=== PATIENT | male | born 1975 | race Caucasian/White ===

== ENCOUNTER 2017-09-23 01:53 | Emergency (ER) | payer BC, OTHER ==
[2017-09-23] MEDS ORDERED: 0.9 % SODIUM CHLORIDE 1,000 ML BAG IV ONE (02:17)
--- NOTE | 2017-09-23 02:21 | Emergency Department Record ---
History of Present Illness - General Chief Complaint: Rapid heartbeat Stated Complaint: "I FEEL STRANGE - ANXIETY MAYBE" Time Seen by Provider: 09/23/17 02:04 Source: Patient Mode of Arrival: Ambulatory Limitations: No limitations - History of Present Illness Initial Comments: The patient is here due to feeling anxious and like his heart has been racing since he went to work [employer] at 10:30 pm. He denies any pain or discomfort but did have some trouble breathing with it which has resolved. The patient denies any recent illness but has been depressed due to a recent back injury. He has had anxiety like this in the past and has been to the ER for it. The patient has no cardiac risk factors and has not ran out of any of his medicines. MD Complaint: "Heart racing", Palpitations Onset/Timin -: Hour(s) Context: Occurred during rest Arrythmia History: Other Associated Symptoms: Anxiety - Related Data Home Medications Medication Instructions Recorded Confirmed Last Taken Diazepam [Valium] 5 mg PO Q8H 09/23/17 09/23/17 09/22/17 Gabapentin [Neurontin] 900 mg PO BID 09/23/17 09/23/17 09/22/17 Hydroxyzine HCl 50 mg PO TID 09/23/17 09/23/17 09/22/17 Propranolol HCl [Propranolol HCl 60 mg PO BID 09/23/17 09/23/17 09/22/17 ER] Allergies Allergy/AdvReac Type Severity Reaction Status Date / Time aspirin Allergy SWELLING Verified 07/21/15 23:59 OF THE TONGUE lamotrigine [From Lamictal] Allergy ANAPHYLAXIS Verified 09/23/17 01:58 Travel Screening - Travel/Exposure Within Last 30 Days Have you traveled within the last 30 days?: No - Travel Symptoms Symptom Screening: None Review of Systems Constitutional: Denies: Chills, Fever Eyes: Denies: Eye discharge ENT: Denies: Congestion Respiratory: Denies: Cough, Dyspnea Cardiovascular: Reports: Palpitations. Denies: Chest pain, Dyspnea on exertion Endocrine: Reports: Fatigue Gastrointestinal: Denies: Diarrhea, Vomiting Genitourinary: Denies: Dysuria Musculoskeletal: Reports: Back pain (chronic.). Denies: Arthralgia Past Medical History - SOCIAL HISTORY Smoking Status: Former smoker Alcohol Use: Rare Drug Use: None - RESPIRATORY Hx Respiratory Disorders: Yes Hx Bronchitis: Yes - CARDIOVASCULAR Hx Cardio Disorders: Yes Hx Heart Attack: ("cardiac arrest" d/t caffeine overdose) Hx Hypertension: No (Does not take any medicines for it.) - NEURO Hx Neuro Disorders: Yes Comment:: akash essential tremors - GI Hx GI Disorders: No - Hx Genitourinary Disorders: Yes Hx Renal Disease: Yes - ENDOCRINE Hx Endocrine Disorders: No - MUSCULOSKELETAL Hx Musculoskeletal Disorders: Yes Hx Back Injury: Yes - PSYCH Hx Psych Problems: Yes Hx Anxiety: Yes Hx Behavior Problems: Yes (bipolar) - HEMATOLOGY/ONCOLOGY Hx Hematology/Oncology Disorders: No Family Medical History Any Significant Family History?: Yes Hx Diabetes: Grandparents Physical Exam - General General Appearance: Alert, Oriented x3, Cooperative, No acute distress - Head Head exam: Atraumatic, Normocephalic, Normal inspection - Eye Eye exam: Normal appearance, PERRL, EOMI - ENT Throat exam: Normal inspection. negative: Tonsillar erythema, Tonsillar exudate - Neck Neck exam: Normal inspection, Full ROM. negative: Tenderness - Respiratory Respiratory exam: Normal lung sounds bilaterally. negative: Respiratory distress - Cardiovascular Cardiovascular Exam: Regular rate, Normal rhythm, Normal heart sounds - GI/Abdominal GI/Abdominal exam: Soft, Normal bowel sounds. negative: Tenderness - Extremities Extremities exam: Normal inspection, Full ROM, Normal capillary refill. negative: Tenderness - Neurological Neurological exam: Alert, Normal gait. negative: Abnormal gait, Motor sensory deficit - Psychiatric Psychiatric exam: Flat affect. negative: Anxious, Depressed - Skin Skin exam: negative: Cyanosis, Rash Course Vital Signs 09/23/17 02:00 Temperature 98.3 F Pulse Rate [ 110 H Pulse Ox Probe] Respiratory 20 Rate Blood Pressure 140/92 [Left Arm] Pulse Ox 97 - Reevaluation(s) Reevaluation #1: The patient is doing well at this time. He states he feels much better knowing everything is normal and does not feel as anxious. I did explain to him that due to the fact he has to drive home I cannot treat him with any medicines now. Also the patient appears very calm at this time. He now does tell me he does take Valium and he is to continue that and see his PCP. The patient's vital signs are all normal at this time and he no longer is having palpitations. 09/23/17 03:23 Medical Decision Making - Data Complexity MDM Data: Labs Ordered and/or Reviewed, X-Ray Ordered and/or Reviewed, EKG Ordered and/or Reviewed - Lab Data Result diagrams: 09/23/17 02:27 09/23/17 02:27 - EKG Data -: EKG Interpreted by Me EKG: No Acute Changes, Normal EKG - Radiology Data Radiology results: Report reviewed (CXR: Neg.) Disposition Disposition: Discharge Clinical Impression: Anxiety Disposition: Home, Self-Care Condition: (2) Stable Instructions: Heart Palpitations (ED) Additional Instructions: Please drink plenty of fluids and continue your regular medicines. Please see your family doctor this week for recheck and return to the ER for any worsening symptoms. Forms: Patient Portal Access Time of Disposition: 03:21 Quality - Quality Measures Quality Measures: N/A - Blood Pressure Screening View Details: Yes Does Patient Have Any of the Following: No Blood Pressure Classification: Pre-Hypertensive BP Reading Systolic Measurement: 125 Diastolic Measurement: 87 Screening for High Blood Pressure: < Pre-Hypertensive BP, F/U Documented > [ [id number]] Pre-Hypertensive Follow-up Interventions: Referral to alternative/primary care provider.
[2017-09-23 02:34] LABS: BASO % 0.4 % (0-6); EOS % 3.7 % (0-6); GRAN % 50.8 % (47-80); HEMATOCRIT 45.3 % (42.0-52.0); HEMOGLOBIN 16.1 gm/dl (14.0-18.0); LYMPH % 38.8 % (16-45); MEAN CELL VOLUME 82.5 fl (81-97); MEAN CORPUSCULAR HEMOGLOBIN 29.3 pg (27-33); MEAN CORPUSCULAR HGB CONC 35.5 g/dl (32-36); MEAN PLATELET VOLUME 9.5 fl (7.4-10.4); MONO % 6.3 % (0-9); PLATELET COUNT 247 K/uL (130-400); RED BLOOD COUNT 5.49 M/uL (4.40-5.70); RED CELL DISTRIBUTION WIDTH 13.2 % (11.5-14.5); WHITE BLOOD COUNT W/O DIFF 8.6 K/uL (4.2-12.2)
[2017-09-23 02:46] LABS: BLOOD UREA NITROGEN 11 mg/dL (6-20); CREATININE 0.7 mg/dL (0.7-1.2); EST GLOMERULAR FILTRATION RATE > 60 mL/min
[2017-09-23 02:47] LABS: INR 0.9; PARTIAL THROMBOPLASTIN TIME 29.2 SECONDS (24.5-39.1); TOTAL PROTEIN 6.9 g/dL (6.6-8.7)
[2017-09-23 02:49] LABS: GLUCOSE,RANDOM 98 mg/dL (74-109)
[2017-09-23 02:52] LABS: ALB/GLOB RATIO 2.1 (1.1-1.8); ALBUMIN 4.7 g/dL (4.0-5.0); ALKALINE PHOSPHATASE 63 U/L (40-129); ALT/SGPT 12 U/L (<41); AST/SGOT 11 U/L (10.0-50.0); CREATINE PHOSPHOKINASE 27 U/L (39-308)
[2017-09-23 02:54] LABS: CKMB 1.3 ng/mL (<6.73)
[2017-09-23 03:04] LABS: THYROID STIMULATING HORMONE 1.03 uIU/mL (0.270-4.20)
[2017-09-23 03:14] LABS: BENZODIAZEPINE SCREEN URINE DETECTED; OPIATE SCREEN URINE DETECTED
[2017-09-23 03:15] LABS: AMPHETAMINE SCREEN URINE NOT DETECTED; BARBITURATE SCREEN URINE NOT DETECTED; COCAINE SCREEN URINE NOT DETECTED; METHADONE SCREEN URINE NOT DETECTED; METHAMPHETAMINE SCREEN NOT DETECTED; OXYCODONE SCREEN URINE NOT DETECTED; PHENCYCLIDINE SCREEN URINE NOT DETECTED; PROPOXYPHENE SCREEN URINE NOT DETECTED; THC SCREEN URINE NOT DETECTED; TRICYCLIC ANTIDEPRESSANT SCRN NOT DETECTED
--- NOTE | 2017-09-24 15:01 | RADIOLOGY REPORT ---
EXAM: CHEST, TWO VIEWS HISTORY: DIFFICULTY IN BREATHING. TECHNIQUE: PA and lateral views of the chest were obtained. Comparison: Thoracic spine radiographs dated 12/13/13. FINDINGS: The cardiac silhouette is within normal size limits. The pulmonary vasculature appears nondilated. No focal pulmonary consolidation, pleural effusion, or pneumothorax is seen. IMPRESSION: NO ACUTE CHEST FINDINGS. JOB NUMBER: [id number] MTDD
== END 2017-09-23 03:30 | disposition home or self-care (01) ==
LOC: ER 01:53
DX: F41.9 Anxiety disorder, unspecified (principal); R00.0 Tachycardia, unspecified; R06.00 Dyspnea, unspecified; I25.2 Old myocardial infarction; Z86.74 Personal history of sudden cardiac arrest; Z87.891 Personal history of nicotine dependence
CPT/HCPCS: 71046; 80053; 80305; 82550; 82553; 84443; 84484; 85025; 85379; 85610; 85730; 93005; 93010; 99284